=== PATIENT | female | born 2000 | race Caucasian/White ===

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

== ENCOUNTER 2023-01-07 20:23 | Inpatient (IN) | payer OTHER ==
[~2023-01-07] VITALS: Ht 157.5 cm; Wt 73.9 kg
[~2023-01-07 20:23] MED LIST: ETON68IM SC; IBUP-1022 PO; SERT50TA29
[2023-01-07 23:24] VITALS: BP 137/86
[2023-01-07] MEDS ORDERED: HYDROMORPHONE HCL 0.5 MG/ 0.5 ML SYRINGE IV PRN (23:55)
[2023-01-08] MEDS ORDERED: ONDANSETRON 4MG 2ML VIAL IV PRN
[2023-01-08] MEDS: NS 1,000 ML IV SCH ×2 (00:33→08:57)
[2023-01-08] MEDS ORDERED: VITMTA PO (00:38)
[2023-01-08] MEDS ORDERED: MAGN400T2 PO (00:38)
[2023-01-08] MEDS ORDERED: RISATAB3 PO (00:38)
[2023-01-08] MEDS ORDERED: VITA100093 PO (00:38)
[2023-01-08] MEDS ORDERED: HOME MED LIST COMPLETE! XX SCH (00:40)
[2023-01-08] MEDS ORDERED: MORPHINE 2 MG/ML 1ML VIAL IV ONE (01:00)
[2023-01-08] MEDS ORDERED: NS 1,000 ML IV ONE (03:05)
[2023-01-08] MEDS ORDERED: metroNIDAZOLE 500 MG in IV 1 EA IV SCH (04:00)
[2023-01-08 04:47] LABS: HEMATOCRIT 35.7 % (36.0-47.0); MEAN CORPUSCULAR HEMOGLOBIN 28.9 pg (27.0-33.0); MEAN CORPUSCULAR HGB CONC 33.6 g/dl (32.0-36.5); PLATELET COUNT, AUTOMATED 257 10^3/uL (150-450); RED BLOOD COUNT 4.15 10^6/uL (4.00-5.40); WHITE BLOOD COUNT 11.2 10^3/uL (4.0-10.0)
[2023-01-08 05:04] LABS: ALBUMIN 3.3 G/DL (3.2-5.2); ALKALINE PHOSPHATASE 55 U/L (46-116); ALT/SGPT 54 U/L (7.0-40); AST/SGOT 26 U/L (<34); BILIRUBIN,TOTAL 0.4 MG/DL (0.3-1.2); BLOOD UREA NITROGEN 10 MG/DL (9-23); CALCIUM LEVEL 7.6 MG/DL (8.5-10.1); CARBON DIOXIDE LEVEL 23 MMOL/L (20-31); CHLORIDE LEVEL 113 MMOL/L (98-107); CREATININE FOR GFR 0.76 MG/DL (0.55-1.30); GLUCOSE, FASTING 97 MG/DL (60-100); MAGNESIUM LEVEL 1.6 MG/DL (1.8-2.4); POTASSIUM SERUM 4.1 MMOL/L (3.5-5.1); SODIUM LEVEL 141 MMOL/L (136-145); TOTAL PROTEIN 5.8 G/DL (5.7-8.2)
[2023-01-08 06:00] VITALS: BP 114/62
[2023-01-08] MEDS ORDERED: CIPROFLOXACIN 400 MG in IV 1 EA IV SCH (06:00)
[2023-01-08] MEDS: MAG SULF 1GM/100ML (MAG RUN) 1 GM in IV 1 EA IV SCH ×2 (08:41→09:56)
[2023-01-08] MEDS ORDERED: ENOXAPARIN 40MG/0.4ML SYRINGE (J1650 PER 10MG) SC SCH (09:00)
[2023-01-08 14:00] VITALS: BP 114/62
== END 2023-01-08 16:47 | disposition home or self-care (01) | DRG 392 ==
LOC: M MSPAV 22:05
PROVIDERS: ADMIT Internal Medicine; ATTEND Internal Medicine
DX: A08.39 Other viral enteritis (principal); K52.9 Noninfective gastroenteritis and colitis, unspecified; R94.5 Abnormal results of liver function studies; R91.1 Solitary pulmonary nodule; R59.0 Localized enlarged lymph nodes; Z20.822 Contact with and (suspected) exposure to COVID-19; Z79.899 Other long term (current) drug therapy

== ENCOUNTER → 2023-01-26 | Outpatient (REF) | payer OTHER ==
[~2023-01-26] MED LIST changes: +MAGN400T2 PO; +RISATAB3 PO; +VITA100093 PO; +VITMTA PO
== END ==
LOC: M LAB REF 17:26
PROVIDERS: ATTEND Emergency Medicine Pediatric Emergency Medicine
DX: R30.0 Dysuria (principal)

== ENCOUNTER → 2023-03-15 | Outpatient (CLI) | payer OTHER | LOC: M PLALAB 12:17 | PROVIDERS: ATTEND Pediatrics | DX: Z11.59 Encounter for screening for other viral diseases (principal) ==